=== PATIENT | female | born 1955 | race Caucasian/White ===

== ENCOUNTER → 2016-10-01 | Outpatient (CLI) | payer OTHER | LOC: FIMAGING 10:31 | PROVIDERS: ATTEND Family Medicine | DX: Z12.31 Encounter for screening mammogram for malignant neoplasm of breast (principal) | CPT/HCPCS: G0202 ==

== ENCOUNTER 2017-02-16 12:03 | Emergency (ER) | payer OTHER ==
[2017-02-16 12:16] VITALS: TEMP 98.4; O2SAT 100
--- NOTE | 2017-02-16 12:21 | CPEKG ---
Heart Rate: 53 RR Interval: 1132 P-R Interval: 184 QRSD Interval: 82 QT Interval: 452 QTC Interval: 425 P [place]: 62 QRS [place]: 75 T Wave [place]: 58 EKG Severity - NORMAL ECG - EKG Impression: SINUS RHYTHM Electronically Signed By: Garrett Lockhart 18-Feb-2017 15:26:34
[2017-02-16] MEDS ORDERED: ASPIRIN 81 MG CHEWABLE TAB PO ONE (14:18)
--- NOTE | 2017-02-16 14:18 | EDPHY ---
General - History Smoking Status: Never smoked Narrative: CHIEF COMPLAINT: Back pain, HISTORY OF PRESENT ILLNESS: Patient complains of back pain that started 11:00 a.m. this morning. She was sitting at her desk. Started thoracic spine radiated up. Seem to be different than her previous musculoskeletal pain. No chest pain. No shortness of breath. No extremity erythema edema or pain. No recent travel trauma or surgery. No history of venous thrombolic event. Was not exertional. Did not radiate into the chest. Lasted for 30 minutes she contacted EMS. Pre-hospital 12 lead was unremarkable for any ischemia. No previous known coronary artery disease or OK. No hypertension dyslipidemia. No family history of early coronary artery disease. No other associated complaints or modifying factors. REVIEW OF SYSTEMS: Ten systems reviewed and are negative unless otherwise noted in the HPI PCP: Dr. Chavez SPECIALISTS: None PAST MEDICAL HISTORY: Mood instability, Tachycardia PAST SURGICAL HISTORY: None recently SOCIAL HISTORY: Nonsmoker. Occasional alcohol. FAMILY HISTORY: Noncontributory EXAMINATION General Appearance: Alert, no distress Head: normocephalic, atraumatic Eyes: Pupils equal and round, no conjunctival pallor or injection ENT, Mouth: Mucous membranes moist Neck: Normal inspection, supple, non-tender Respiratory: Lungs are clear to auscultation no wheezing, rhonchi or crackles Cardiovascular: Regular rate and rhythm. No murmur Gastrointestinal: Abdomen is soft and nontender Back: Mild soft tissue tenderness in the thoracic region. No midline tenderness. No crepitus, step-off or deformity Neurological: GCS 15 A&O, nonfocal, normal gait Skin: Warm and dry, no rash. No petechiae purpura Extremities: Nontender, no pedal edema. Symmetric range of motion of extremities Psychiatric: Mood and affect normal DIFFERENTIAL DIAGNOSES: Including but not limited to musculoskeletal pain, muscle cramp, ACS, aneurysm MDM: 2:15 p.m. Sudden onset of back pain at approximately 11:00 a.m. this morning. This has resolved at this time. She says that was different from previous incidence of pain, but is mildly reproducible on examination. EKG is unremarkable. Pre- hospital 12 lead unremarkable. Vital signs stable. I have ordered cardiac laboratory studies and chest x-ray. She is in no acute distress. 3:30 p.m. Laboratory studies are negative. Chest x-ray is clear with exception of the left calcified granuloma. Vital signs remained stable. I discussed the case with Dr. Guerra and she will evaluate the patient. 4:00 p.m. Patient has been examined by Dr. Guerra. She agrees the patient stable for discharge home. Patient discharged home with instructions to continue anti- inflammatories. Short course of Flexeril as prescribed as needed. Follow up with primary care physician. ED precautions for any worsening pain, chest pain , exertional pain. She is comfortable this plan and discharged in stable condition. EKG interpretation: read by Dr. Guerra (Sorin Hinds) The patient was evaluated and managed by the physician bilingual office assistant. I have reviewed this chart and I agree with the findings and plan of care as documented , as indicated by my signature. I am the secondary supervising physician. 12 lead EKG is interpreted in Trace master View by emergency department physician. (Dania Guerra) - Diagnostics Imaging Results: Imaging Impressions Chest X-Ray 02/16/17 14:18 Impression: Possible airways disease. - Objective Vital Signs: Initial Vital Signs Temperature (C) 36.9 C 02/16/17 12:03 Heart Rate 60 02/16/17 12:03 Respiratory Rate 20 02/16/17 12:03 Blood Pressure 143/92 H 02/16/17 12:03 O2 Sat (%) 100 02/16/17 12:03 O2 Delivery Mode Room Air Allergies/Adverse Reactions: No Known Allergies Allergy (Unverified 02/16/17 12:13) Home Medications: Medication Instructions Recorded CLONAZEPAM 02/16/17 CYCLOBENZAPRINE HCL [Flexeril] 5 mg PO TIDPRN PRN #11 tab 02/16/17 LAMOTRIGINE 02/16/17 [facility] Carbonate 02/16/17 Laboratory Results: Laboratory Results 02/16/17 12:10 02/16/17 12:10 02/16/17 02/16/17 02/16/17 12:10 12:10 12:10 WBC 6.04 10^3/uL 10^3/uL (3.80-9.50) RBC 4.52 10^6/uL 10^6/uL (4.18-5.33) Hgb 14.0 g/dL g/dL (12.6-16.3) Hct 41.1 % % (38.0-47.0) MCV 90.9 fL fL (81.5-99.8) MCH 31.0 pg pg (27.9-34.1) MCHC 34.1 g/dL g/dL (32.4-36.7) RDW 12.3 % % (11.5-15.2) Plt Count 245 10^3/uL 10^3/uL (150-400) MPV 9.3 fL fL (8.7-11.7) Neut % (Auto) 56.8 % % (39.3-74.2) Lymph % (Auto) 32.8 % % (15.0-45.0) [place] % (Auto) 7.5 % % (4.5-13.0) Eos % (Auto) 2.0 % % (0.6-7.6) Baso % (Auto) 0.7 % % (0.3-1.7) Nucleat RBC Rel Count 0.0 % % (0.0-0.2) Absolute Neuts (auto) 3.44 10^3/uL 10^3/uL (1.70-6.50) Absolute Lymphs (auto) 1.98 10^3/uL 10^3/uL (1.00-3.00) Absolute Monos (auto) 0.45 10^3/uL 10^3/uL (0.30-0.80) Absolute Eos (auto) 0.12 10^3/uL 10^3/uL (0.03-0.40) Absolute Basos (auto) 0.04 10^3/uL 10^3/uL (0.02-0.10) Absolute Nucleated RBC 0.00 10^3/uL 10^3/uL (0-0.01) Immature Gran % 0.2 % % (0.0-1.1) Immature Gran # 0.01 10^3/uL 10^3/uL (0.00-0.10) PT 12.4 SEC SEC (12.0-15.0) INR 0.93 (0.83-1.16) APTT 25.8 SEC SEC (23.0-38.0) Sodium 139 mEq/L mEq/L (134-144) Potassium 4.5 mEq/L mEq/L (3.5-5.2) Chloride 100 mEq/L mEq/L (97-110) Carbon Dioxide 26 mEq/l mEq/l (22-31) Anion Gap 13 mEq/L mEq/L (8-16) BUN 13 mg/dL mg/dL (7-23) Creatinine 1.0 mg/dL mg/dL (0.6-1.0) Estimated GFR 57 Glucose 79 mg/dL mg/dL (70-100) Calcium 10.0 mg/dL mg/dL (8.5-10.4) Troponin I < 0.012 ng/mL ng/mL (0.000-0.034) NT-Pro-B Natriuret Pep 72 pg/mL pg/mL (0-125) Lipase 165 IU/L IU/L (23-300) Medications Given: Discontinued Medications Aspirin (Aspirin) 324 mg PO EDNOW ONE Stop: 02/16/17 14:19 Last Admin: 02/16/17 14:50 Dose: 324 mg Departure - Departure Disposition: Home, Routine, Self-Care Clinical Impression: Back pain Qualifiers: Back pain location: thoracic back pain Chronicity: acute Back pain laterality: unspecified Qualified Code(s): M54.6 - Pain in thoracic spine Condition: Good Instructions: Musculoskeletal Pain (ED), Back Pain (ED) Additional Instructions: 1. Anti-inflammatories [id number] as discussed 2. ED precautions for chest pain, worsening pain, shortness of breath 3. Follow up with her established primary care physician Referrals: Marleen Chavez MD [Primary Care Provider] - As per Instructions Prescriptions: CYCLOBENZAPRINE HCL [Flexeril] 5 mg PO TIDPRN PRN #11 tab PRN Reason: Spasms
[2017-02-16 14:25] LABS: % IMMATURE GRANULYOCYTES 0.2 % (0.0-1.1); ABSOLUTE IMMATURE GRANULOCYTES 0.01 10^3/uL (0.00-0.10); ADD DIFF? NO; ADD MORPH? NO; ADD SCAN? NO; ATYPICAL LYMPHOCYTE FLAG 0 (0-99); FRAGMENT RBC FLAG 0 (0-99); HEMATOCRIT 41.1 % (38.0-47.0); LEFT SHIFT FLG 0 (0-99); LIPEMIA HEMOLYSIS FLAG 90 (0-99); MEAN CELL HEMOGLOBIN CONCENTR. 34.1 g/dL (32.4-36.7); MEAN CELL VOLUME 90.9 fL (81.5-99.8); MEAN PLATELET VOLUME 9.3 fL (8.7-11.7); PLATELET CLUMPS FLAG 0 (0-99); PLATELET COUNT 245 10^3/uL (150-400); RED BLOOD CELL COUNT 4.52 10^6/uL (4.18-5.33); RED CELL DISTRIBUTION WIDTH 12.3 % (11.5-15.2)
[2017-02-16 14:31] LABS: INR 0.93 (0.83-1.16); PROTIME(PATIENT) 12.4 SEC (12.0-15.0)
[2017-02-16 14:32] LABS: APTT 25.8 SEC (23.0-38.0)
[2017-02-16 14:34] LABS: ANION GAP 13 mEq/L (8-16); CARBON DIOXIDE 26 mEq/l (22-31); CHLORIDE 100 mEq/L (97-110); GLOMERULAR FILTRATION RATE 57; GLUCOSE 79 mg/dL (70-100); POTASSIUM 4.5 mEq/L (3.5-5.2); SODIUM 139 mEq/L (134-144)
[2017-02-16 14:46] LABS: TROPONIN I < 0.012 ng/mL (0.000-0.034)
[2017-02-16 14:54] VITALS: BP 117/74; PULSE 55; RESP 16
== END 2017-02-16 16:18 | disposition home or self-care (01) ==
LOC: EDUNIT#
DX: M54.6 Pain in thoracic spine (principal)